=== PATIENT | male | born 1975 ===

== ENCOUNTER 2023-11-14 00:03 | Emergency (ER) | payer SELFPAY ==
[2023-11-14] MEDS: Aspirin 81 MG Tab.Chew PO ONE (00:21)
[2023-11-14] MEDS: Sodium Chloride 0.9% 10 ML Syringe FLUSH PRN (00:32)
[2023-11-14 00:34] LABS: BASOPHILS PERCENT AUTO 0.6 % (0.0-1.0); EOSINOPHILS PERCENT AUTO 3.6 % (1.0-3.0); HEMATOCRIT 38.8 % (40.0-54.0); LYMPHOCYTES PERCENT AUTO 35.9 % (20.5-50.1); MEAN CORPUSCULAR HEMOGLOBIN 32.7 pg (27.0-34.0); MEAN CORPUSCULAR HGB CONC 33.5 g/dL (33.0-35.0); MEAN CORPUSCULAR VOLUME 97.5 fL (80-100); MONOCYTES PERCENT AUTO 10.9 % (2-8); PLATELET COUNT,PLT 262 10^3/uL (150-450); RED BLOOD CELL COUNT 3.98 10^6/uL (4.6-6.2); WHITE BLOOD CELL COUNT,WBC 3.6 10^3/uL (5.0-10.0)
[2023-11-14 00:48] LABS: BARBITURATES,URINE NEGATIVE (NEGATIVE); BENZODIAZEPINE,URINE NEGATIVE (NEGATIVE); MDMA (ECSTASY), URINE NEGATIVE (NEGATIVE); METHADONE,URINE NEGATIVE (NEGATIVE); METHAMPHETAMINES,URINE POSITIVE (NEGATIVE); OPIATES,URINE NEGATIVE (NEGATIVE); PHENCYCLIDINE,URINE NEGATIVE (NEGATIVE); TCA,URINE NEGATIVE (NEGATIVE)
[2023-11-14 00:49] LABS: AMPHETAMINES,URINE POSITIVE (NEGATIVE); OXYCODONE,URINE NEGATIVE (NEGATIVE)
[2023-11-14 00:57] LABS: A/G RATIO 0.8; ALBUMIN 3.5 g/dL (3.4-5.0); BILIRUBIN TOTAL 0.7 mg/dL (0.2-1.0); BUN/CREATININE RATIO 9.9 (No establ ref range); CREATININE 1.01 mg/dL (0.70-1.30); EST CRCL DRUG DOSING (CG) 96.04 mL/min; PROTEIN TOTAL,TP 7.9 g/dL (6.4-8.2)
[2023-11-14] MEDS: Bumetanide 1 MG/4 ML MDV IVPUSH ONE (01:03)
[2023-11-14 01:10] LABS: INR 1.2 (0.9-1.2); PTT,PARTIAL THROMBOPLSTIN TIME 28.1 SEC (22.0-34.0)
[2023-11-14] MEDS: Apixaban 5 MG Tab PO ONE (01:23)
[2023-11-14] MEDS: Iopamidol 755 Mg/ML 100 ML Bottle IVPUSH ONE (01:57)
== END 2023-11-14 03:33 ==
LOC: DL.ED 00:03
DX: I26.09 Other pulmonary embolism with acute cor pulmonale (principal); I48.0 Paroxysmal atrial fibrillation; I11.0 Hypertensive heart disease with heart failure; I50.42 Chronic combined systolic (congestive) and diastolic (congestive) heart failure; F15.10 Other stimulant abuse, uncomplicated; F10.10 Alcohol abuse, uncomplicated; K70.31 Alcoholic cirrhosis of liver with ascites; Z91.148 Patient's other noncompliance with medication regimen for other reason; K21.9 Gastro-esophageal reflux disease without esophagitis; Z79.899 Other long term (current) drug therapy
CPT/HCPCS: 36415; 71045; 71275; 80053; 80305; 80307; 83880; 84484; 85025; 85379; 85610; 85730; 93005; 96374; 99285; A9270; J3490; Q9967; 93010

== ENCOUNTER 2023-11-28 11:15 | Emergency (ER) | payer SELFPAY ==
[2023-11-28] MEDS: Sodium Chloride 0.9% 10 ML Syringe FLUSH PRN (11:56)
[2023-11-28 12:05] LABS: BASOPHILS PERCENT AUTO 0.1 % (0.0-1.0); EOSINOPHILS PERCENT AUTO 0.1 % (1.0-3.0); HEMATOCRIT 36.8 % (40.0-54.0); HEMOGLOBIN 12.1 g/dL (14.0-18.0); LYMPHOCYTES PERCENT AUTO 2.6 % (20.5-50.1); MEAN CORPUSCULAR HEMOGLOBIN 30.8 pg (27.0-34.0); MEAN CORPUSCULAR HGB CONC 32.9 g/dL (33.0-35.0); MEAN CORPUSCULAR VOLUME 93.6 fL (80-100); NEUTROPHILS PERCENT AUTO 94.2 % (42.2-75.2); PLATELET COUNT,PLT 294 10^3/uL (150-450); RED BLOOD CELL COUNT 3.93 10^6/uL (4.6-6.2); WHITE BLOOD CELL COUNT,WBC 15.1 10^3/uL (5.0-10.0)
[2023-11-28] MEDS: Acetaminophen 500 MG Tab PO ONE (12:22)
[2023-11-28] MEDS: Sodium Chloride 0.9% 1,000 ML IV ONE (12:22)
[2023-11-28 12:27] LABS: ALBUMIN 3.2 g/dL (3.4-5.0); ANION GAP 18.1 mEq/L (7-13); BILIRUBIN TOTAL 1.1 mg/dL (0.2-1.0); BUN/CREATININE RATIO 14.1 (No establ ref range); CREATININE 1.7 mg/dL (0.70-1.30); EST CRCL DRUG DOSING (CG) 57.06 mL/min; POTASSIUM,K 4.1 mmol/L (3.5-5.1)
[2023-11-28 12:29] LABS: A/G RATIO 0.84
[2023-11-28 12:30] LABS: LACTIC ACID 2.2 mmol/L (0.4-2.0)
[2023-11-28] MEDS: Iopamidol 755 Mg/ML 100 ML Bottle IVPUSH ONE (12:35)
[2023-11-28] MEDS: cefTRIAXone 1 GM Vial IVPUSH ONE (13:08)
[2023-11-28 15:13] LABS: B-TYPE NATRIURETIC PEPTIDE,BNP 2480 pg/ml (0-100)
== END 2023-11-28 16:07 ==
LOC: DL.ED 11:15
DX: A41.9 Sepsis, unspecified organism (principal); R65.21 Severe sepsis with septic shock; R07.9 Chest pain, unspecified; N17.9 Acute kidney failure, unspecified; I26.99 Other pulmonary embolism without acute cor pulmonale; I11.0 Hypertensive heart disease with heart failure; I50.9 Heart failure, unspecified; K21.9 Gastro-esophageal reflux disease without esophagitis; Z79.899 Other long term (current) drug therapy
CPT/HCPCS: 36415; 71045; 71275; 80053; 80307; 83605; 83880; 84484; 85025; 87040; 87077; 93005; 93010; 96361; 96365; 96366; 96375; 99285; 99285-25; A9270-GY; J0696; J3370; J3490; J7030; J7050; Q9967